=== PATIENT | male | born 1980 | race African-American/Black ===

== ENCOUNTER 2020-02-22 17:28 | Inpatient (IN) ==
[2020-02-22 19:33] LABS: Basophils % 0.5 % (0.0-0.8); Eosinophils # 0.1 10*3/uL (0.0-0.87); Eosinophils % 1.1 % (0.00-10.9); Hematocrit 44.5 VOL% (42.0-52.0); Hemoglobin 16.1 GM/DL (14.0-18.0); Immature Granulocytes % 0.3 %; Immature Granulocytes Absolute 0.02 #; Lymphocytes # 2.1 10*3/uL (1.4-4.0); Lymphocytes % 31.7 % (21.2-54.2); Mean Corpuscular HGB Conc 36.2 GM/DL (32-36); Mean Platelet Volume 11.2 FL (9.6-12.0); Monocytes % 7.5 % (1.7-12.7); Neutrophils % 58.9 % (38.7-73.9); Platelet Count 146 T/CUMM (130-400); Red Cell Distribution Width 13.2 % (9.3-17.3); White Blood Count 6.5 T/CUMM (4-12)
[2020-02-22 19:42] LABS: Apearance,Urine CLEAR (Clear); Bilirubin,Urine Negative (Negative); Blood, Urine Negative (Negative); Glucose,Urine (UA) Negative (Negative); Hyaline Casts,Urine 14 /LPF (0-3); Ketones,Urine Negative (Negative); Mucus,Urine Occasional /LPF (Occasional); Nitrite,Urine Negative (Negative); Protein,Urine Negative; Squamous Epithelial Cell,Urine Occasional /HPF (0-10); Urine Color Yellow (Yellow); Urine Specific Gravity 1.019 (1.001-1.035); Urine Urobilinogen < 2.0 EU/DL (0.2-1.0)
[2020-02-22 19:42] LABS: PT Patient Result 11.1 SECS (9.8-11.9)
[2020-02-22 19:50] LABS: Alanine Aminotransferase 33 U/L (16-61); Albumin 3.9 G/DL (3.4-5.0); Alkaline Phosphatase 103 U/L (45-117); Aspartate Amino Transferase 28 U/L (0-37); Blood Urea Nitrogen 10 MG/DL (7-18); CKMB % 0.8 %; Calcium 8.3 MG/DL (8.5-10.1); Estimated Glom Filtration Rate 115 ML/MIN; Glucose 73 MG/DL (74-106); Osmolality,Calculated 278.3 MOS/KG (273-304); Total Protein 6.9 G/DL (6.4-8.3); Troponin I < 0.015 NG/ML (0.00-0.045)
[2020-02-22 19:51] LABS: Acetaminophen < 2.0 UG/ML (10-30); Salicylate < 2.8 MG/DL (2.8-20)
[2020-02-22 20:00] LABS: Barbiturates Screen,Urine Negative (Negative); Benzodiazepines Screen,Urine Negative (Negative); Cannabinoid Screen,Urine Negative (Negative); Opiate Screen,Urine Negative (Negative); Phencyclidine Screen,Urine Negative (Negative)
[2020-02-22] MEDS ORDERED: ALBUTEROL 2.5 MG/3 ML NEB RESP TX PRN (23:51)
[2020-02-22] MEDS ORDERED: ONDANSETRON 4 MG/2 ML VIAL IV PRN (23:51)
[2020-02-23] MEDS: LACTATED RINGERS 1,000 ML IV SCH ×3 (01:55→15:45)
[2020-02-23 05:10] LABS: Basophils % 0.3 % (0.0-0.8); Eosinophils # 0.1 10*3/uL (0.0-0.87); Eosinophils % 1.8 % (0.00-10.9); Hematocrit 42.5 VOL% (42.0-52.0); Immature Granulocytes % 0.3 %; Immature Granulocytes Absolute 0.02 #; Lymphocytes # 2.3 10*3/uL (1.4-4.0); Lymphocytes % 35.3 % (21.2-54.2); Mean Corpuscular HGB Conc 37.2 GM/DL (32-36); Mean Corpuscular Volume 84.5 FL (87-102); Mean Platelet Volume 12.1 FL (9.6-12.0); Monocytes % 7.6 % (1.7-12.7); Neutrophils % 54.7 % (38.7-73.9); Platelet Count 119 T/CUMM (130-400); Red Blood Count 5.03 MC/CUMM (3.8-5.5); Red Cell Distribution Width 13.2 % (9.3-17.3); White Blood Count 6.6 T/CUMM (4-12)
[2020-02-23 05:14] LABS: Hemoglobin 15.8 GM/DL (14.0-18.0)
[2020-02-23 05:17] LABS: Albumin 3.5 G/DL (3.4-5.0); Bilirubin,Total 1.3 MG/DL (0.2-1.0); Calcium 8.5 MG/DL (8.5-10.1); Osmolality,Calculated 273.8 MOS/KG (273-304); Total Protein 6.3 G/DL (6.4-8.3)
[2020-02-23] MEDS: clonazePAM 0.5 MG TABLET PO SCH ×2 (12:26→21:18)
[2020-02-23] MEDS: GABAPENTIN 400 MG CAPSULE PO SCH ×2 (12:26→21:18)
[2020-02-23] MEDS: MIRTAZAPINE 30 MG TABLET PO SCH (21:18)
[2020-02-23] MEDS: MIRTAZAPINE 15 MG TABLET PO SCH (21:18)
[2020-02-24 01:25] VITALS: BP 119/79
[2020-02-24] MEDS: LACTATED RINGERS 1,000 ML IV SCH ×4 (02:29→20:56)
[2020-02-24] MEDS: GABAPENTIN 400 MG CAPSULE PO SCH ×2 (08:08→20:51)
[2020-02-24] MEDS: clonazePAM 0.5 MG TABLET PO SCH ×2 (08:08→20:51)
[2020-02-24] MEDS: MIRTAZAPINE 30 MG TABLET PO SCH (20:52)
[2020-02-24] MEDS: MIRTAZAPINE 15 MG TABLET PO SCH (20:52)
[2020-02-25] MEDS: LACTATED RINGERS 1,000 ML IV SCH ×2 (04:23→11:05)
[2020-02-25] MEDS: GABAPENTIN 400 MG CAPSULE PO SCH (09:09)
[2020-02-25] MEDS: clonazePAM 0.5 MG TABLET PO SCH (09:09)
== END 2020-02-25 18:33 | DRG 817 ==
LOC: EDBD → EDUNIT# → N.ED 17:28 → N.EDINP 23:51 → SUATTDRO 23:51 → N.ICU 02-23 00:29
PROVIDERS: ADMIT Student in an Organized Health Care Education/Training Program; ATTEND Internal Medicine

== ENCOUNTER 2020-06-12 23:29 | Observation (INO) ==
[2020-06-12] MEDS ORDERED: SODIUM CHLORIDE 0.9% 1,000 ML IV STA (23:42)
[2020-06-13 00:11] LABS: Bilirubin,Total 0.6 MG/DL (0.2-1.0); Calcium 8.9 MG/DL (8.5-10.1); Osmolality,Calculated 276.7 MOS/KG (273-304); Total Protein 7.7 G/DL (6.4-8.3)
[2020-06-13] MEDS ORDERED: ASPIRIN CHEW 81 MG TABLET PO STA (00:21)
[2020-06-13 00:27] LABS: Basophils % 0.4 % (0.0-0.8); Eosinophils % 0.1 % (0.00-10.9); Hematocrit 49.6 VOL% (42.0-52.0); Hemoglobin 18.5 GM/DL (14.0-18.0); Immature Granulocytes % 0.7 %; Immature Granulocytes Absolute 0.06 #; Lymphocytes # 1.7 10*3/uL (1.4-4.0); Lymphocytes % 20.4 % (21.2-54.2); Mean Corpuscular HGB Conc 37.3 GM/DL (32-36); Mean Corpuscular Volume 84.4 FL (87-102); Mean Platelet Volume 11.9 FL (9.6-12.0); Neutrophils % 71.4 % (38.7-73.9); Platelet Count 217 T/CUMM (130-400); Red Blood Count 5.88 MC/CUMM (3.8-5.5); Red Cell Distribution Width 13.2 % (9.3-17.3); White Blood Count 8.1 T/CUMM (4-12)
[2020-06-13 00:43] LABS: PT Patient Result 10.5 SECS (9.8-11.9)
[2020-06-13 01:27] LABS: Bilirubin,Urine Negative (Negative); Blood, Urine Negative (Negative); Glucose,Urine (UA) Negative (Negative); Hyaline Casts,Urine 61 /LPF (0-3); Ketones,Urine Negative (Negative); Mucus,Urine Few /LPF (Occasional); Nitrite,Urine Negative (Negative); Protein,Urine 100 MG/DL; Squamous Epithelial Cell,Urine Occasional /HPF (0-10); Urine Appearance CLOUDY (Clear); Urine Color Yellow (Yellow); Urine Specific Gravity 1.012 (1.001-1.035); WBC,Urine 3 /HPF (0-6)
[2020-06-13 01:29] LABS: Barbiturates Screen,Urine Negative (Negative); Benzodiazepines Screen,Urine Negative (Negative); Cannabinoid Screen,Urine Negative (Negative); Opiate Screen,Urine Negative (Negative); Phencyclidine Screen,Urine Negative (Negative)
[2020-06-13] MEDS ORDERED: THIAMINE INJ 100 MG, FOLIC ACID INJ 1 MG, MULTIVITAMIN INJ 10 ML in SODIUM CHLORIDE 0.9... IV ONE (01:30)
[2020-06-13] MEDS ORDERED: DEXTROSE 50% 25 GM/50 ML VIAL IV PRN (01:41)
[2020-06-13] MEDS ORDERED: GLUCAGON 1 MG VIAL IM PRN (01:41)
[2020-06-13] MEDS ORDERED: ONDANSETRON 4 MG/2 ML VIAL IV PRN (01:41)
[2020-06-13] MEDS ORDERED: NICOTINE 21 MG/24 HR PATCH TRANSDERM PRN (01:41)
[2020-06-13] MEDS ORDERED: INFLUENZA VIRUS VACCINE 0.5 ML SYRINGE IM ONE (03:50)
[2020-06-13 04:28] LABS: Albumin 3.3 G/DL (3.4-5.0); Bilirubin,Total 0.9 MG/DL (0.2-1.0); Calcium 8.3 MG/DL (8.5-10.1); Osmolality,Calculated 281.3 MOS/KG (273-304); Total Protein 6.5 G/DL (6.4-8.3)
[2020-06-13] MEDS ORDERED: ENOXAPARIN 80 MG/0.8 ML SYRINGE SUBCUT SCH (06:30)
[2020-06-13] MEDS: LACTATED RINGERS 1,000 ML IV SCH ×3 (13:10→17:45)
[2020-06-13] MEDS: GABAPENTIN 100 MG CAPSULE PO SCH (21:19)
[2020-06-14 03:18] LABS: Calcium 8.3 MG/DL (8.5-10.1); Osmolality,Calculated 278.4 MOS/KG (273-304)
[2020-06-14 03:23] LABS: Risk Ratio 2.05; VLDL CHOLESTEROL 16.2 MG/DL
[2020-06-14 03:25] LABS: Basophils % 0.2 % (0.0-0.8); Eosinophils # 0.1 10*3/uL (0.0-0.87); Eosinophils % 1.8 % (0.00-10.9); Hematocrit 43.2 VOL% (42.0-52.0); Immature Granulocytes % 0.5 %; Immature Granulocytes Absolute 0.03 #; Lymphocytes # 1.8 10*3/uL (1.4-4.0); Lymphocytes % 29.3 % (21.2-54.2); Mean Corpuscular HGB Conc 37.3 GM/DL (32-36); Mean Corpuscular Volume 84.4 FL (87-102); Mean Platelet Volume 11.4 FL (9.6-12.0); Monocytes % 8.4 % (1.7-12.7); Neutrophils % 59.8 % (38.7-73.9); Red Blood Count 5.12 MC/CUMM (3.8-5.5); Red Cell Distribution Width 13.1 % (9.3-17.3); White Blood Count 6.2 T/CUMM (4-12)
[2020-06-14 03:28] LABS: Hemoglobin 16.1 GM/DL (14.0-18.0); Platelet Count 147 T/CUMM (130-400)
[2020-06-14 08:58] VITALS: BP 156/93
[2020-06-14] MEDS ORDERED: ASPIRIN CHEW 81 MG TABLET PO SCH (09:00)
[2020-06-14] MEDS ORDERED: ENOXAPARIN 40 MG/0.4 ML SYRINGE SUBCUT SCH (09:00)
[2020-06-14] MEDS: GABAPENTIN 100 MG CAPSULE PO SCH (09:21)
== END 2020-06-14 13:30 | disposition home or self-care (01) ==
LOC: N.EDINP 23:29 → N.ED 23:29 → N.TELES 06-13 02:43
PROVIDERS: ADMIT Internal Medicine; ATTEND Internal Medicine

== ENCOUNTER 2020-10-12 02:05 | Observation (INO) ==
[2020-10-12 03:13] LABS: Acetaminophen < 2.0 UG/ML (10-30); Salicylate < 2.8 MG/DL (2.8-20)
[2020-10-12 03:23] LABS: Barbiturates Screen,Urine Negative (Negative); Benzodiazepines Screen,Urine Negative (Negative); Cannabinoid Screen,Urine Negative (Negative); Opiate Screen,Urine Negative (Negative); Phencyclidine Screen,Urine Negative (Negative)
[2020-10-12 03:32] LABS: Bilirubin,Urine Negative (Negative); Blood, Urine Negative (Negative); Glucose,Urine (UA) Negative (Negative); Hyaline Casts,Urine 37 /LPF (0-3); Ketones,Urine Negative (Negative); Mucus,Urine Moderate /LPF (Occasional); Nitrite,Urine Negative (Negative); Protein,Urine 30 MG/DL; RBC,Urine 14 /HPF (0-4); Squamous Epithelial Cell,Urine Occasional /HPF (0-10); Urine Appearance Slightly Hazy (Clear); Urine Color Amber (Yellow); Urine Specific Gravity 1.041 (1.001-1.035); WBC,Urine 1 /HPF (0-6)
[2020-10-12] MEDS ORDERED: ONDANSETRON 4 MG/2 ML VIAL IV PRN (06:07)
[2020-10-12] MEDS ORDERED: ACETAMINOPHEN 325 MG TABLET PO PRN (06:07)
[2020-10-12] MEDS ORDERED: DEXTROSE 50% 25 GM/50 ML VIAL IV PRN (06:07)
[2020-10-12] MEDS ORDERED: PROMETHAZINE 25 MG/1 ML VIAL IM PRN (06:07)
[2020-10-12] MEDS ORDERED: hydrALAZINE 20 MG/1 ML VIAL IV PRN (06:07)
[2020-10-12] MEDS ORDERED: GLUCAGON 1 MG VIAL IM PRN (06:07)
[2020-10-12] MEDS ORDERED: DOCUSATE SODIUM 100 MG CAPSULE PO PRN (06:07)
[2020-10-12] MEDS ORDERED: LORazepam 2 MG/1 ML VIAL IV PRN (06:11)
[2020-10-12] MEDS ORDERED: HALOPERIDOL 5 MG/ML AMP IM PRN (06:11)
[2020-10-12] MEDS: ENOXAPARIN 40 MG/0.4 ML SYRINGE SUBCUT SCH (06:58)
[2020-10-12] MEDS: SODIUM CHLORIDE 0.9% 1,000 ML IV SCH ×3 (07:00→23:00)
[2020-10-12] MEDS ORDERED: IBUPROFEN 800 MG TABLET PO PRN (14:35)
[2020-10-12] MEDS: GABAPENTIN 600 MG TABLET PO PRN (14:58)
[2020-10-12] MEDS: DULoxetine 30 MG CAPSULE PO SCH (20:34)
[2020-10-12] MEDS: SODIUM CHLORIDE 0.65% NASAL SPRAY 45 ML BOTTLE BOTH NARES PRN (22:20)
[2020-10-13 06:03] LABS: Basophils % 0.2 % (0.0-0.8); Eosinophils # 0.4 10*3/uL (0.0-0.87); Eosinophils % 4.4 % (0.00-10.9); Hematocrit 41.8 VOL% (42.0-52.0); Hemoglobin 15.6 GM/DL (14.0-18.0); Immature Granulocytes % 0.5 %; Immature Granulocytes Absolute 0.04 #; Lymphocytes # 1.6 10*3/uL (1.4-4.0); Lymphocytes % 17.6 % (21.2-54.2); Mean Corpuscular HGB Conc 37.3 GM/DL (32-36); Mean Corpuscular Volume 84.3 FL (87-102); Mean Platelet Volume 12.2 FL (9.6-12.0); Neutrophils % 69.3 % (38.7-73.9); Platelet Count 152 T/CUMM (130-400); Red Blood Count 4.96 MC/CUMM (3.8-5.5); Red Cell Distribution Width 13.2 % (9.3-17.3); White Blood Count 8.9 T/CUMM (4-12)
[2020-10-13 06:10] LABS: Calcium 8.7 MG/DL (8.5-10.1); Potassium 4.7 MMOL/L (3.5-5.1)
[2020-10-13] MEDS: ENOXAPARIN 40 MG/0.4 ML SYRINGE SUBCUT SCH (06:33)
[2020-10-13] MEDS: SODIUM CHLORIDE 0.9% 1,000 ML IV SCH ×4 (08:24→22:30)
[2020-10-13] MEDS: GABAPENTIN 600 MG TABLET PO PRN (11:24)
[2020-10-13] MEDS: DULoxetine 30 MG CAPSULE PO SCH (20:19)
[2020-10-13] MEDS: SODIUM CHLORIDE 0.65% NASAL SPRAY 45 ML BOTTLE BOTH NARES PRN (20:22)
[2020-10-14] MEDS: SODIUM CHLORIDE 0.9% 1,000 ML IV SCH ×2 (04:00→12:00)
[2020-10-14] MEDS: ENOXAPARIN 40 MG/0.4 ML SYRINGE SUBCUT SCH (08:23)
[2020-10-14 15:05] VITALS: BP 134/77
== END 2020-10-14 20:19 ==
LOC: SUATTDRO → N.EDINP 02:05 → N.ED 02:05 → N.5E 08:15
PROVIDERS: ADMIT Internal Medicine Geriatric Medicine; ATTEND Internal Medicine Geriatric Medicine

== ENCOUNTER 2021-01-06 00:09 | Observation (INO) ==
[2021-01-06] MEDS ORDERED: SODIUM CHLORIDE 0.9% 1,000 ML IV STA ×3 (00:26→02:46)
[2021-01-06 01:12] LABS: Basophils % 0.3 % (0.0-0.8); Eosinophils % 0.3 % (0.00-10.9); Hematocrit 46.7 VOL% (42.0-52.0); Hemoglobin 16.8 GM/DL (14.0-18.0); Immature Granulocytes % 0.3 %; Immature Granulocytes Absolute 0.02 #; Lymphocytes # 1.5 10*3/uL (1.4-4.0); Mean Corpuscular Volume 85.2 FL (87-102); Mean Platelet Volume 12.3 FL (9.6-12.0); Neutrophils % 70.1 % (38.7-73.9); Platelet Count 141 T/CUMM (130-400); Red Blood Count 5.48 MC/CUMM (3.8-5.5); Red Cell Distribution Width 13.6 % (9.3-17.3); White Blood Count 7.8 T/CUMM (4-12)
[2021-01-06 01:39] LABS: Alanine Aminotransferase 49 U/L (16-61); Albumin 4.1 G/DL (3.4-5.0); Alkaline Phosphatase 101 U/L (45-117); Aspartate Amino Transferase 56 U/L (0-37); Blood Urea Nitrogen 17 MG/DL (7-18); CKMB % 0.3 %; Calcium 8.7 MG/DL (8.5-10.1); Carbon Dioxide 25 MMOL/L (21-32); Estimated Glom Filtration Rate 106 ML/MIN; Glucose 112 MG/DL (74-106); Osmolality,Calculated 277.7 MOS/KG (273-304); Potassium 3.9 MMOL/L (3.5-5.1); Sodium 138 MMOL/L (136-145); Total Protein 7.1 G/DL (6.4-8.2)
[2021-01-06] MEDS ORDERED: ONDANSETRON 4 MG/2 ML VIAL IV PRN (02:28)
[2021-01-06] MEDS ORDERED: DEXTROSE 50% 25 GM/50 ML VIAL IV PRN (02:28)
[2021-01-06] MEDS ORDERED: GLUCAGON 1 MG VIAL IM PRN (02:28)
[2021-01-06] MEDS ORDERED: SODIUM CHLORIDE 0.9% 1,000 ML IV SCH (02:30)
[2021-01-06 03:00] LABS: Bilirubin,Urine Negative (Negative); Blood, Urine Negative (Negative); Glucose,Urine (UA) Negative (Negative); Ketones,Urine Negative (Negative); Mucus,Urine Occasional /LPF (Occasional); Nitrite,Urine Negative (Negative); Protein,Urine Negative; RBC,Urine 2 /HPF (0-4); Squamous Epithelial Cell,Urine Occasional /HPF (0-10); Urine Appearance CLEAR (Clear); Urine Color Yellow (Yellow); Urine Specific Gravity 1.025 (1.001-1.035)
[2021-01-06 03:13] LABS: Barbiturates Screen,Urine Negative (Negative); Benzodiazepines Screen,Urine Negative (Negative); Cannabinoid Screen,Urine Negative (Negative); Opiate Screen,Urine Negative (Negative); Phencyclidine Screen,Urine Negative (Negative)
[2021-01-06 05:42] LABS: CKMB % 0.3 %; High Sensitive Troponin I* 51.6 ng/L (0-78)
[2021-01-06] MEDS: SODIUM CHLORIDE 0.9% 1,000 ML IV SCH ×3 (12:24→20:27)
[2021-01-07] MEDS: SODIUM CHLORIDE 0.9% 1,000 ML IV SCH ×2 (01:10→09:00)
[2021-01-07 05:50] LABS: Basophils % 0.3 % (0.0-0.8); Eosinophils # 0.2 10*3/uL (0.0-0.87); Eosinophils % 2.7 % (0.00-10.9); Hematocrit 46.3 VOL% (42.0-52.0); Hemoglobin 16.5 GM/DL (14.0-18.0); Immature Granulocytes % 0.3 %; Immature Granulocytes Absolute 0.02 #; Lymphocytes # 1.8 10*3/uL (1.4-4.0); Lymphocytes % 29.5 % (21.2-54.2); Mean Corpuscular HGB Conc 35.6 GM/DL (32-36); Mean Platelet Volume 12.1 FL (9.6-12.0); Monocytes % 8.1 % (1.7-12.7); Neutrophils % 59.1 % (38.7-73.9); Platelet Count 129 T/CUMM (130-400); Red Blood Count 5.45 MC/CUMM (3.8-5.5); Red Cell Distribution Width 13.3 % (9.3-17.3); White Blood Count 5.9 T/CUMM (4-12)
[2021-01-07 06:22] LABS: Albumin 3.6 G/DL (3.4-5.0); Bilirubin,Total 1.8 MG/DL (0.20-1.00); Calcium 8.6 MG/DL (8.5-10.1); Osmolality,Calculated 273.7 MOS/KG (273-304); Potassium 4.2 MMOL/L (3.5-5.1); Total Protein 6.1 G/DL (6.4-8.2)
[2021-01-07 07:28] VITALS: BP 133/90
== END 2021-01-07 11:26 | disposition home or self-care (01) ==
LOC: EDUNIT# → EDBD → N.EDINP 00:09 → N.ED 00:09 → N.EDINP 11:10 → N.5E 12:01
PROVIDERS: ADMIT Internal Medicine; ATTEND Internal Medicine

== ENCOUNTER 2021-01-25 06:28 | Inpatient (IN) ==
[2021-01-25 08:16] LABS: Acetaminophen < 2.0 UG/ML (10-30); Salicylate < 2.8 MG/DL (2.8-20)
[2021-01-25 08:19] LABS: Basophils % 0.3 % (0.0-0.8); Eosinophils % 0.4 % (0.00-10.9); Hematocrit 41.3 VOL% (42.0-52.0); Immature Granulocytes % 0.5 %; Immature Granulocytes Absolute 0.04 #; Lymphocytes # 0.4 10*3/uL (1.4-4.0); Lymphocytes % 4.6 % (21.2-54.2); Mean Corpuscular HGB Conc 37.8 GM/DL (32-36); Mean Corpuscular Volume 82.9 FL (87-102); Mean Platelet Volume 11.5 FL (9.6-12.0); Monocytes % 2.9 % (1.7-12.7); Neutrophils % 91.3 % (38.7-73.9); Platelet Count 169 T/CUMM (130-400); Red Blood Count 4.98 MC/CUMM (3.8-5.5); Red Cell Distribution Width 13.3 % (9.3-17.3); White Blood Count 7.7 T/CUMM (4-12)
[2021-01-25 08:21] LABS: Hemoglobin 15.6 GM/DL (14.0-18.0)
[2021-01-25 08:29] LABS: Band Neutrophils 1 % (0-10); Eosinophils 2 % (0-10); Lymphocytes 6 % (20-55); Platelet Estimate Adequate; Segmented Neutrophils 89 % (50-85); Total Cells Counted 100
[2021-01-25 10:32] LABS: Barbiturates Screen,Urine Negative (Negative); Benzodiazepines Screen,Urine Negative (Negative); Cannabinoid Screen,Urine Negative (Negative); Opiate Screen,Urine Negative (Negative); Phencyclidine Screen,Urine Negative (Negative)
[2021-01-25] MEDS ORDERED: DOCUSATE SODIUM 100 MG CAPSULE PO PRN (12:16)
[2021-01-25] MEDS ORDERED: LORazepam 2 MG/1 ML VIAL IV PRN (12:16)
[2021-01-25] MEDS ORDERED: DEXTROSE 50% 25 GM/50 ML VIAL IV PRN (12:16)
[2021-01-25] MEDS ORDERED: GLUCAGON 1 MG VIAL IM PRN (12:16)
[2021-01-25] MEDS ORDERED: SIMETHICONE CHEW 125 MG TABLET PO PRN (12:16)
[2021-01-25 12:49] LABS: Albumin 3.9 G/DL (3.4-5.0); Bilirubin,Total 1.2 MG/DL (0.20-1.00); Calcium 8.7 MG/DL (8.5-10.1); Osmolality,Calculated 260.8 MOS/KG (273-304); Potassium 3.9 MMOL/L (3.5-5.1); Thyroid Stimulating Hormone 0.149 uIU/ml (0.358-3.74); Total Protein 6.9 G/DL (6.4-8.2)
[2021-01-25] MEDS: ENOXAPARIN 40 MG/0.4 ML SYRINGE SUBCUT SCH (14:26)
[2021-01-25 19:52] LABS: Bilirubin,Urine Negative (Negative); Blood, Urine Negative (Negative); Glucose,Urine (UA) Negative (Negative); Ketones,Urine 20 mg/dL (Negative); Mucus,Urine Occasional /LPF (Occasional); Nitrite,Urine Negative (Negative); Protein,Urine Negative; RBC,Urine 3 /HPF (0-4); Squamous Epithelial Cell,Urine Occasional /HPF (0-10); Urine Appearance CLEAR (Clear); Urine Color Yellow (Yellow); Urine Specific Gravity 1.019 (1.001-1.035)
[2021-01-25] MEDS: ASCORBIC ACID 500 MG TABLET PO SCH (23:15)
[2021-01-26 04:39] LABS: Albumin 3.4 G/DL (3.4-5.0); Bilirubin,Total 0.9 MG/DL (0.20-1.00); Calcium 9.1 MG/DL (8.5-10.1); Osmolality,Calculated 270.1 MOS/KG (273-304); Potassium 4.1 MMOL/L (3.5-5.1); Total Protein 6.8 G/DL (6.4-8.2)
[2021-01-26 04:41] LABS: Ferritin 764.1 ng/ml (26-388)
[2021-01-26 04:43] LABS: Basophils % 0.2 % (0.0-0.8); Eosinophils % 0.4 % (0.00-10.9); Hematocrit 44.5 VOL% (42.0-52.0); Immature Granulocytes % 0.4 %; Immature Granulocytes Absolute 0.02 #; Lymphocytes # 1.3 10*3/uL (1.4-4.0); Lymphocytes % 26.2 % (21.2-54.2); Mean Corpuscular HGB Conc 36.4 GM/DL (32-36); Mean Corpuscular Volume 83.3 FL (87-102); Mean Platelet Volume 11.7 FL (9.6-12.0); Monocytes % 9.9 % (1.7-12.7); Neutrophils % 62.9 % (38.7-73.9); Platelet Count 202 T/CUMM (130-400); Red Blood Count 5.34 MC/CUMM (3.8-5.5); Red Cell Distribution Width 13.2 % (9.3-17.3)
[2021-01-26 04:48] LABS: Hemoglobin 16.2 GM/DL (14.0-18.0)
[2021-01-26] MEDS: ASCORBIC ACID 500 MG TABLET PO SCH ×2 (08:32→21:13)
[2021-01-26] MEDS: ZINC GLUCONATE 50 MG TABLET PO SCH (08:32)
[2021-01-26] MEDS: PANTOPRAZOLE 40 MG TABLET PO SCH (08:32)
[2021-01-26] MEDS: CHOLECALCIFEROL 1,000 UNIT TABLET PO SCH (08:33)
[2021-01-26] MEDS ORDERED: MECLIZINE 25 MG TABLET PO PRN (11:00)
[2021-01-26] MEDS ORDERED: ONDANSETRON 4 MG/2 ML VIAL IV PRN (11:00)
[2021-01-26] MEDS ORDERED: SODIUM CHLORIDE 0.9% 200 ML IV SCH (11:00)
[2021-01-26] MEDS ORDERED: methylPREDNISolone SOD SUC 125 MG/2 ML VIAL IV PRN (11:00)
[2021-01-26] MEDS ORDERED: ACETAMINOPHEN 325 MG TABLET PO PRN (11:00)
[2021-01-26] MEDS ORDERED: DEXAMETHASONE 4 MG TABLET PO ONE (11:00)
[2021-01-26] MEDS ORDERED: diphenhydrAMINE 50 MG/1 ML VIAL IV PRN ×2 (11:00)
[2021-01-26] MEDS: SODIUM CHLORIDE 0.9% 1,000 ML IV SCH (11:11)
[2021-01-26] MEDS ORDERED: CASIRIVIMAB/IMDEVIMAB 1,200 MG in SODIUM CHLORIDE 0.9% 100 ML IV ONE (12:00)
[2021-01-26] MEDS: ENOXAPARIN 40 MG/0.4 ML SYRINGE SUBCUT SCH (13:16)
[2021-01-26 17:00] LABS: Free T4 (Free Thyroxine) 0.9 NG/DL (0.76-1.46)
[2021-01-27 08:50] LABS: Calcium 8.6 MG/DL (8.5-10.1); Ferritin 623.8 ng/ml (26-388); Potassium 3.7 MMOL/L (3.5-5.1)
[2021-01-27] MEDS: ASCORBIC ACID 500 MG TABLET PO SCH ×2 (09:37→20:15)
[2021-01-27] MEDS: CHOLECALCIFEROL 1,000 UNIT TABLET PO SCH (09:37)
[2021-01-27] MEDS: ZINC GLUCONATE 50 MG TABLET PO SCH (09:37)
[2021-01-27] MEDS: PANTOPRAZOLE 40 MG TABLET PO SCH (09:37)
[2021-01-27] MEDS: ENOXAPARIN 40 MG/0.4 ML SYRINGE SUBCUT SCH (15:53)
[2021-01-27] MEDS: SODIUM CHLORIDE 0.9% 1,000 ML IV SCH (16:45)
[2021-01-28 07:07] LABS: Calcium 8.4 MG/DL (8.5-10.1); Ferritin 512.2 ng/ml (26-388); Osmolality,Calculated 274.7 MOS/KG (273-304); Potassium 4.4 MMOL/L (3.5-5.1)
[2021-01-28] MEDS: ASCORBIC ACID 500 MG TABLET PO SCH ×2 (08:47→19:40)
[2021-01-28] MEDS: CHOLECALCIFEROL 1,000 UNIT TABLET PO SCH (08:50)
[2021-01-28] MEDS: PANTOPRAZOLE 40 MG TABLET PO SCH (08:50)
[2021-01-28] MEDS: ZINC GLUCONATE 50 MG TABLET PO SCH (09:23)
[2021-01-28] MEDS: ENOXAPARIN 40 MG/0.4 ML SYRINGE SUBCUT SCH (19:40)
[2021-01-28] MEDS: MELATONIN 3 MG TABLET PO PRN (19:40)
[2021-01-29] MEDS: ASCORBIC ACID 500 MG TABLET PO SCH ×2 (08:06→20:30)
[2021-01-29] MEDS: CHOLECALCIFEROL 1,000 UNIT TABLET PO SCH (08:06)
[2021-01-29] MEDS: ZINC GLUCONATE 50 MG TABLET PO SCH (08:06)
[2021-01-29] MEDS: PANTOPRAZOLE 40 MG TABLET PO SCH (08:06)
[2021-01-29 08:17] LABS: Calcium 8.7 MG/DL (8.5-10.1); Ferritin 629.9 ng/ml (26-388); Osmolality,Calculated 269.1 MOS/KG (273-304); Potassium 4.3 MMOL/L (3.5-5.1)
[2021-01-29] MEDS: ENOXAPARIN 40 MG/0.4 ML SYRINGE SUBCUT SCH (20:30)
[2021-01-29] MEDS ORDERED: diphenhydrAMINE CAP 25 MG CAPSULE PO PRN (23:12)
[2021-01-30 05:13] LABS: Basophils % 0.2 % (0.0-0.8); Eosinophils # 0.1 10*3/uL (0.0-0.87); Eosinophils % 1.4 % (0.00-10.9); Hemoglobin 15.4 GM/DL (14.0-18.0); Immature Granulocytes % 0.5 %; Immature Granulocytes Absolute 0.03 #; Lymphocytes # 2.3 10*3/uL (1.4-4.0); Lymphocytes % 41.8 % (21.2-54.2); Mean Corpuscular HGB Conc 35.8 GM/DL (32-36); Mean Corpuscular Volume 84.1 FL (87-102); Mean Platelet Volume 11.8 FL (9.6-12.0); Monocytes % 6.8 % (1.7-12.7); Neutrophils % 49.3 % (38.7-73.9); Platelet Count 205 T/CUMM (130-400); Red Blood Count 5.11 MC/CUMM (3.8-5.5); White Blood Count 5.6 T/CUMM (4-12)
[2021-01-30 05:53] LABS: Calcium 8.8 MG/DL (8.5-10.1); Osmolality,Calculated 272.8 MOS/KG (273-304); Potassium 4.5 MMOL/L (3.5-5.1)
[2021-01-30] MEDS: CHOLECALCIFEROL 1,000 UNIT TABLET PO SCH (09:27)
[2021-01-30] MEDS: ASCORBIC ACID 500 MG TABLET PO SCH ×2 (09:27→20:30)
[2021-01-30] MEDS: PANTOPRAZOLE 40 MG TABLET PO SCH (09:27)
[2021-01-30] MEDS: ZINC GLUCONATE 50 MG TABLET PO SCH (09:27)
[2021-01-30] MEDS: ENOXAPARIN 40 MG/0.4 ML SYRINGE SUBCUT SCH (20:30)
[2021-01-30] MEDS: ACETAMINOPHEN 325 MG TABLET PO PRN (22:45)
[2021-01-30] MEDS: MELATONIN 3 MG TABLET PO PRN (22:45)
[2021-01-31 06:10] LABS: Ferritin 613.3 ng/ml (26-388)
[2021-01-31] MEDS: CHOLECALCIFEROL 1,000 UNIT TABLET PO SCH (08:52)
[2021-01-31] MEDS: ASCORBIC ACID 500 MG TABLET PO SCH ×2 (08:52→20:05)
[2021-01-31] MEDS: ZINC GLUCONATE 50 MG TABLET PO SCH (08:52)
[2021-01-31] MEDS: PANTOPRAZOLE 40 MG TABLET PO SCH (08:52)
[2021-01-31] MEDS: ENOXAPARIN 40 MG/0.4 ML SYRINGE SUBCUT SCH (20:05)
[2021-01-31] MEDS: MELATONIN 3 MG TABLET PO PRN (20:05)
[2021-02-01 06:48] LABS: Ferritin 659.3 ng/ml (26-388)
[2021-02-01 07:02] LABS: Calcium 8.9 MG/DL (8.5-10.1); Osmolality,Calculated 271.8 MOS/KG (273-304); Potassium 4.2 MMOL/L (3.5-5.1)
[2021-02-01 07:06] LABS: Basophils % 0.3 % (0.0-0.8); Eosinophils # 0.1 10*3/uL (0.0-0.87); Eosinophils % 1.5 % (0.00-10.9); Hematocrit 43.7 VOL% (42.0-52.0); Immature Granulocytes Absolute 0.06 #; Lymphocytes # 2.1 10*3/uL (1.4-4.0); Lymphocytes % 34.9 % (21.2-54.2); Mean Corpuscular HGB Conc 37.1 GM/DL (32-36); Mean Corpuscular Volume 83.9 FL (87-102); Mean Platelet Volume 12.2 FL (9.6-12.0); Monocytes % 5.8 % (1.7-12.7); Neutrophils % 56.5 % (38.7-73.9); Platelet Count 199 T/CUMM (130-400); Red Blood Count 5.21 MC/CUMM (3.8-5.5); Red Cell Distribution Width 13.2 % (9.3-17.3); White Blood Count 5.9 T/CUMM (4-12)
[2021-02-01 07:09] LABS: Hemoglobin 16.2 GM/DL (14.0-18.0)
[2021-02-01] MEDS: PANTOPRAZOLE 40 MG TABLET PO SCH (08:03)
[2021-02-01] MEDS: CHOLECALCIFEROL 1,000 UNIT TABLET PO SCH (08:03)
[2021-02-01] MEDS: ZINC GLUCONATE 50 MG TABLET PO SCH (08:03)
[2021-02-01] MEDS: ASCORBIC ACID 500 MG TABLET PO SCH ×2 (08:03→20:29)
[2021-02-01] MEDS ORDERED: hydrOXYzine HCL 25 MG/1 ML VIAL IM PRN (14:18)
[2021-02-01] MEDS: ENOXAPARIN 40 MG/0.4 ML SYRINGE SUBCUT SCH (20:29)
[2021-02-01] MEDS: MELATONIN 3 MG TABLET PO PRN (20:30)
[2021-02-02 05:43] LABS: Basophils % 0.2 % (0.0-0.8); Eosinophils # 0.1 10*3/uL (0.0-0.87); Eosinophils % 1.7 % (0.00-10.9); Hematocrit 45.2 VOL% (42.0-52.0); Hemoglobin 16.2 GM/DL (14.0-18.0); Immature Granulocytes % 0.9 %; Immature Granulocytes Absolute 0.06 #; Lymphocytes # 2.1 10*3/uL (1.4-4.0); Lymphocytes % 31.7 % (21.2-54.2); Mean Corpuscular HGB Conc 35.8 GM/DL (32-36); Mean Corpuscular Volume 84.5 FL (87-102); Monocytes % 6.3 % (1.7-12.7); Neutrophils % 59.2 % (38.7-73.9); Platelet Count 198 T/CUMM (130-400); Red Blood Count 5.35 MC/CUMM (3.8-5.5); Red Cell Distribution Width 13.2 % (9.3-17.3); White Blood Count 6.6 T/CUMM (4-12)
[2021-02-02 06:11] LABS: Calcium 8.9 MG/DL (8.5-10.1); Ferritin 725.1 ng/ml (26-388); Osmolality,Calculated 274.7 MOS/KG (273-304); Potassium 4.4 MMOL/L (3.5-5.1)
[2021-02-02] MEDS: PANTOPRAZOLE 40 MG TABLET PO SCH (08:32)
[2021-02-02] MEDS: ASCORBIC ACID 500 MG TABLET PO SCH ×2 (08:33→19:43)
[2021-02-02] MEDS: CHOLECALCIFEROL 1,000 UNIT TABLET PO SCH (08:33)
[2021-02-02] MEDS: ZINC GLUCONATE 50 MG TABLET PO SCH (08:33)
[2021-02-02] MEDS ORDERED: HALOPERIDOL 5 MG/ML AMP IM ONE (16:30)
[2021-02-02] MEDS: ENOXAPARIN 40 MG/0.4 ML SYRINGE SUBCUT SCH (19:43)
[2021-02-03 06:40] LABS: Calcium 9.3 MG/DL (8.5-10.1); Ferritin 704.4 ng/ml (26-388); Osmolality,Calculated 274.5 MOS/KG (273-304); Potassium 4.5 MMOL/L (3.5-5.1)
[2021-02-03 07:08] LABS: Basophils % 0.3 % (0.0-0.8); Eosinophils # 0.1 10*3/uL (0.0-0.87); Eosinophils % 1.3 % (0.00-10.9); Hematocrit 43.9 VOL% (42.0-52.0); Immature Granulocytes % 1.4 %; Lymphocytes # 2.1 10*3/uL (1.4-4.0); Mean Corpuscular HGB Conc 36.7 GM/DL (32-36); Mean Corpuscular Volume 84.4 FL (87-102); Mean Platelet Volume 12.1 FL (9.6-12.0); Monocytes % 7.4 % (1.7-12.7); Neutrophils % 58.6 % (38.7-73.9); Platelet Count 202 T/CUMM (130-400); Red Cell Distribution Width 13.5 % (9.3-17.3); White Blood Count 6.9 T/CUMM (4-12)
[2021-02-03 07:09] LABS: Hemoglobin 16.1 GM/DL (14.0-18.0)
[2021-02-03] MEDS: CHOLECALCIFEROL 1,000 UNIT TABLET PO SCH (09:27)
[2021-02-03] MEDS: PANTOPRAZOLE 40 MG TABLET PO SCH (09:28)
[2021-02-03] MEDS: ASCORBIC ACID 500 MG TABLET PO SCH ×2 (09:28→21:32)
[2021-02-03] MEDS: ZINC GLUCONATE 50 MG TABLET PO SCH (09:28)
[2021-02-03] MEDS: ENOXAPARIN 40 MG/0.4 ML SYRINGE SUBCUT SCH (21:31)
[2021-02-04 06:28] LABS: Basophils % 0.4 % (0.0-0.8); Eosinophils # 0.1 10*3/uL (0.0-0.87); Eosinophils % 1.6 % (0.00-10.9); Hematocrit 44.6 VOL% (42.0-52.0); Hemoglobin 16.1 GM/DL (14.0-18.0); Immature Granulocytes % 1.8 %; Immature Granulocytes Absolute 0.14 #; Lymphocytes % 25.9 % (21.2-54.2); Mean Corpuscular HGB Conc 36.1 GM/DL (32-36); Mean Corpuscular Volume 84.8 FL (87-102); Mean Platelet Volume 12.3 FL (9.6-12.0); Neutrophils % 64.3 % (38.7-73.9); Platelet Count 204 T/CUMM (130-400); Red Blood Count 5.26 MC/CUMM (3.8-5.5); Red Cell Distribution Width 13.5 % (9.3-17.3); White Blood Count 7.6 T/CUMM (4-12)
[2021-02-04 06:49] LABS: Ferritin 639.6 ng/ml (26-388); Osmolality,Calculated 276.7 MOS/KG (273-304); Potassium 4.3 MMOL/L (3.5-5.1)
[2021-02-04] MEDS: ZINC GLUCONATE 50 MG TABLET PO SCH (08:02)
[2021-02-04] MEDS: ASCORBIC ACID 500 MG TABLET PO SCH ×2 (08:02→21:41)
[2021-02-04] MEDS: PANTOPRAZOLE 40 MG TABLET PO SCH (08:02)
[2021-02-04] MEDS: CHOLECALCIFEROL 1,000 UNIT TABLET PO SCH (08:02)
[2021-02-04] MEDS: ACETAMINOPHEN 325 MG TABLET PO PRN ×2 (12:00→22:29)
[2021-02-04] MEDS: ENOXAPARIN 40 MG/0.4 ML SYRINGE SUBCUT SCH (21:41)
[2021-02-05 04:07] LABS: Basophils % 0.3 % (0.0-0.8); Eosinophils # 0.1 10*3/uL (0.0-0.87); Eosinophils % 1.5 % (0.00-10.9); Hematocrit 45.8 VOL% (42.0-52.0); Hemoglobin 16.2 GM/DL (14.0-18.0); Immature Granulocytes % 1.3 %; Lymphocytes # 2.3 10*3/uL (1.4-4.0); Lymphocytes % 30.3 % (21.2-54.2); Mean Corpuscular HGB Conc 35.4 GM/DL (32-36); Mean Corpuscular Volume 83.9 FL (87-102); Mean Platelet Volume 11.5 FL (9.6-12.0); Neutrophils % 60.6 % (38.7-73.9); Platelet Count 207 T/CUMM (130-400); Red Blood Count 5.46 MC/CUMM (3.8-5.5); Red Cell Distribution Width 13.8 % (9.3-17.3); White Blood Count 7.6 T/CUMM (4-12)
[2021-02-05 04:26] LABS: Hypochromasia Slight
[2021-02-05 04:27] LABS: Microcytosis 1+; Platelet Estimate Normal
[2021-02-05 04:42] LABS: Blood Urea Nitrogen 9 MG/DL (7-18); Calcium 8.1 MG/DL (8.5-10.1); Carbon Dioxide 22 MMOL/L (21-32); Estimated Glom Filtration Rate 148 ML/MIN; Ferritin 594.4 ng/ml (26-388); Glucose 129 MG/DL (74-106); Potassium 3.5 MMOL/L (3.5-5.1); Sodium 143 MMOL/L (136-145)
[2021-02-05] MEDS: ACETAMINOPHEN 325 MG TABLET PO PRN ×2 (10:25→20:28)
[2021-02-05] MEDS: ZINC GLUCONATE 50 MG TABLET PO SCH (10:26)
[2021-02-05] MEDS: CHOLECALCIFEROL 1,000 UNIT TABLET PO SCH (10:26)
[2021-02-05] MEDS: ASCORBIC ACID 500 MG TABLET PO SCH ×2 (10:26→20:28)
[2021-02-05] MEDS: PANTOPRAZOLE 40 MG TABLET PO SCH (10:26)
[2021-02-05] MEDS: ENOXAPARIN 40 MG/0.4 ML SYRINGE SUBCUT SCH (20:28)
[2021-02-05] MEDS: MELATONIN 3 MG TABLET PO PRN (22:07)
[2021-02-06 05:28] LABS: Basophils % 0.5 % (0.0-0.8); Eosinophils # 0.1 10*3/uL (0.0-0.87); Eosinophils % 1.4 % (0.00-10.9); Hematocrit 46.8 VOL% (42.0-52.0); Hemoglobin 17.1 GM/DL (14.0-18.0); Immature Granulocytes % 1.7 %; Immature Granulocytes Absolute 0.14 #; Lymphocytes # 2.4 10*3/uL (1.4-4.0); Lymphocytes % 28.2 % (21.2-54.2); Mean Corpuscular HGB Conc 36.5 GM/DL (32-36); Mean Corpuscular Volume 83.6 FL (87-102); Neutrophils % 61.2 % (38.7-73.9); Platelet Count 169 T/CUMM (130-400); Red Cell Distribution Width 13.9 % (9.3-17.3); White Blood Count 8.5 T/CUMM (4-12)
[2021-02-06 05:49] LABS: Blood Urea Nitrogen 9 MG/DL (7-18); Calcium 8.8 MG/DL (8.5-10.1); Carbon Dioxide 21 MMOL/L (21-32); Estimated Glom Filtration Rate 140 ML/MIN; Ferritin 618.7 ng/ml (26-388); Glucose 106 MG/DL (74-106); Osmolality,Calculated 271.8 MOS/KG (273-304); Potassium 5.3 MMOL/L (3.5-5.1); Sodium 137 MMOL/L (136-145)
[2021-02-06] MEDS: CHOLECALCIFEROL 1,000 UNIT TABLET PO SCH (09:08)
[2021-02-06] MEDS: ASCORBIC ACID 500 MG TABLET PO SCH ×2 (09:08→21:32)
[2021-02-06] MEDS: PANTOPRAZOLE 40 MG TABLET PO SCH (09:08)
[2021-02-06] MEDS: ZINC GLUCONATE 50 MG TABLET PO SCH (09:08)
[2021-02-06] MEDS: MELATONIN 3 MG TABLET PO PRN (21:32)
[2021-02-06] MEDS: ENOXAPARIN 40 MG/0.4 ML SYRINGE SUBCUT SCH (21:32)
[2021-02-07 05:21] LABS: Basophils % 0.3 % (0.0-0.8); Eosinophils # 0.1 10*3/uL (0.0-0.87); Eosinophils % 1.6 % (0.00-10.9); Hematocrit 45.9 VOL% (42.0-52.0); Hemoglobin 16.5 GM/DL (14.0-18.0); Immature Granulocytes % 1.2 %; Immature Granulocytes Absolute 0.09 #; Lymphocytes # 2.1 10*3/uL (1.4-4.0); Lymphocytes % 27.9 % (21.2-54.2); Mean Corpuscular HGB Conc 35.9 GM/DL (32-36); Mean Corpuscular Volume 84.5 FL (87-102); Mean Platelet Volume 12.5 FL (9.6-12.0); Monocytes % 6.1 % (1.7-12.7); NRBC # 0.02 10*3/uL; Neutrophils % 62.9 % (38.7-73.9); Platelet Count 200 T/CUMM (130-400); Red Blood Count 5.43 MC/CUMM (3.8-5.5); White Blood Count 7.4 T/CUMM (4-12)
[2021-02-07 05:40] LABS: Blood Urea Nitrogen 9 MG/DL (7-18); Calcium 8.8 MG/DL (8.5-10.1); Carbon Dioxide 26 MMOL/L (21-32); Estimated Glom Filtration Rate 133 ML/MIN; Ferritin 666.3 ng/ml (26-388); Glucose 107 MG/DL (74-106); Osmolality,Calculated 273.7 MOS/KG (273-304); Potassium 4.5 MMOL/L (3.5-5.1); Sodium 138 MMOL/L (136-145)
[2021-02-07] MEDS: PANTOPRAZOLE 40 MG TABLET PO SCH (08:37)
[2021-02-07] MEDS: CHOLECALCIFEROL 1,000 UNIT TABLET PO SCH (08:37)
[2021-02-07] MEDS: ASCORBIC ACID 500 MG TABLET PO SCH ×2 (08:38→20:53)
[2021-02-07] MEDS: ZINC GLUCONATE 50 MG TABLET PO SCH (08:38)
[2021-02-07] MEDS: ENOXAPARIN 40 MG/0.4 ML SYRINGE SUBCUT SCH (20:53)
[2021-02-07] MEDS: MELATONIN 3 MG TABLET PO PRN (22:33)
[2021-02-08] MEDS: PANTOPRAZOLE 40 MG TABLET PO SCH (08:43)
[2021-02-08] MEDS: ASCORBIC ACID 500 MG TABLET PO SCH ×2 (08:44→20:31)
[2021-02-08] MEDS: CHOLECALCIFEROL 1,000 UNIT TABLET PO SCH (08:44)
[2021-02-08] MEDS: ZINC GLUCONATE 50 MG TABLET PO SCH (08:45)
[2021-02-08] MEDS: ACETAMINOPHEN 325 MG TABLET PO PRN ×2 (09:48→20:31)
[2021-02-08] MEDS: SERTRALINE 25 MG TABLET PO SCH (20:31)
[2021-02-08] MEDS: MELATONIN 3 MG TABLET PO PRN (20:31)
[2021-02-08] MEDS: ENOXAPARIN 40 MG/0.4 ML SYRINGE SUBCUT SCH (20:32)
[2021-02-09] MEDS: CHOLECALCIFEROL 1,000 UNIT TABLET PO SCH (08:24)
[2021-02-09] MEDS: PANTOPRAZOLE 40 MG TABLET PO SCH (08:24)
[2021-02-09] MEDS: ZINC GLUCONATE 50 MG TABLET PO SCH (08:25)
[2021-02-09] MEDS: ASCORBIC ACID 500 MG TABLET PO SCH ×2 (08:25→20:18)
[2021-02-09] MEDS: ENOXAPARIN 40 MG/0.4 ML SYRINGE SUBCUT SCH (20:18)
[2021-02-09] MEDS: SERTRALINE 25 MG TABLET PO SCH (20:18)
[2021-02-09] MEDS: MELATONIN 3 MG TABLET PO PRN (22:19)
[2021-02-10 07:03] LABS: Albumin 3.4 G/DL (3.4-5.0); Bilirubin,Total 0.7 MG/DL (0.20-1.00); Calcium 8.9 MG/DL (8.5-10.1); Ferritin 559.9 ng/mL (26-388); Osmolality,Calculated 278.4 MOS/KG (273-304); Potassium 4.3 MMOL/L (3.5-5.1); Total Protein 6.5 G/DL (6.4-8.2)
[2021-02-10] MEDS: PANTOPRAZOLE 40 MG TABLET PO SCH (08:53)
[2021-02-10] MEDS: ASCORBIC ACID 500 MG TABLET PO SCH ×2 (08:54→21:32)
[2021-02-10] MEDS: ZINC GLUCONATE 50 MG TABLET PO SCH (08:54)
[2021-02-10] MEDS: CHOLECALCIFEROL 1,000 UNIT TABLET PO SCH (08:54)
[2021-02-10] MEDS: MELATONIN 3 MG TABLET PO PRN (21:32)
[2021-02-10] MEDS: SERTRALINE 25 MG TABLET PO SCH (21:32)
[2021-02-10] MEDS: ENOXAPARIN 40 MG/0.4 ML SYRINGE SUBCUT SCH (21:32)
[2021-02-11 06:06] LABS: Albumin 3.3 G/DL (3.4-5.0); Bilirubin,Total 0.6 MG/DL (0.20-1.00); Ferritin 545.6 ng/mL (26-388); Osmolality,Calculated 274.8 MOS/KG (273-304); Potassium 4.9 MMOL/L (3.5-5.1); Total Protein 6.4 G/DL (6.4-8.2)
[2021-02-11] MEDS: ASCORBIC ACID 500 MG TABLET PO SCH (09:19)
[2021-02-11] MEDS: ZINC GLUCONATE 50 MG TABLET PO SCH (09:19)
[2021-02-11] MEDS: PANTOPRAZOLE 40 MG TABLET PO SCH (09:19)
[2021-02-11 10:47] VITALS: BP 115/79
[2021-02-11] MEDS: CHOLECALCIFEROL 1,000 UNIT TABLET PO SCH (10:58)
== END 2021-02-11 09:35 | disposition home or self-care (01) | DRG 756 ==
LOC: N.ED 06:28 → N.EDINP 12:17 → SUATTDRO 12:17 → N.2E 01-27 11:43
PROVIDERS: ADMIT Internal Medicine; ATTEND Internal Medicine

== ENCOUNTER 2021-11-08 16:50 | Observation (INO) ==
[2021-11-08 17:28] LABS: Basophils % 0.3 % (0.0-0.8); Eosinophils # 0.1 10*3/uL (0.0-0.87); Eosinophils % 1.5 % (0.00-10.9); Hematocrit 47.3 VOL% (42.0-52.0); Immature Granulocytes % 0.4 %; Immature Granulocytes Absolute 0.03 #; Lymphocytes # 1.6 10*3/uL (1.4-4.0); Lymphocytes % 23.6 % (21.2-54.2); Mean Corpuscular HGB Conc 35.9 GM/DL (32-36); Mean Platelet Volume 12.5 FL (9.6-12.0); Monocytes # 0.5 10*3/uL (0.11-0.8); Monocytes % 6.9 % (1.7-12.7); Neutrophils % 67.3 % (38.7-73.9); Platelet Count 163 T/CUMM (130-400); Red Cell Distribution Width 13.8 % (9.3-17.3); White Blood Count 6.8 T/CUMM (4-12)
[2021-11-08 17:44] LABS: Acetaminophen < 2.0 UG/ML (10-30); Salicylate < 2.8 MG/DL (2.8-20)
[2021-11-08 17:46] LABS: Albumin 3.7 G/DL (3.4-5.0); Bilirubin,Total 0.6 MG/DL (0.20-1.00); Calcium 9.7 MG/DL (8.5-10.1); Osmolality,Calculated 278.7 MOS/KG (273-304); Potassium 4.3 MMOL/L (3.5-5.1); Total Protein 7.2 G/DL (6.4-8.2)
[2021-11-08 18:04] LABS: Bilirubin,Urine Negative (Negative); Blood, Urine Negative (Negative); Glucose,Urine (UA) Negative (Negative); Ketones,Urine Negative (Negative); Nitrite,Urine Negative (Negative); Protein,Urine Negative (Negative); Squamous Epithelial Cell,Urine Occasional /HPF (0-10); Urine Appearance Clear (Clear); Urine Color Yellow (Yellow); Urine Urobilinogen 0.2 eU/dL (<2.0); Urine pH 6.5 (4.5-8.0)
[2021-11-08 18:16] LABS: Barbiturates Screen,Urine Negative (Negative); Benzodiazepines Screen,Urine Negative (Negative); Cannabinoid Screen,Urine Negative (Negative); Opiate Screen,Urine Negative (Negative); Phencyclidine Screen,Urine Negative (Negative)
[2021-11-08] MEDS ORDERED: DEXTROSE 10% 250 ML BAG IV PRN (22:42)
[2021-11-08] MEDS ORDERED: NICOTINE 21 MG/24 HR PATCH TRANSDERM PRN (22:42)
[2021-11-08] MEDS ORDERED: guaiFENesin/DM ER 600-30 MG TABLET PO PRN (22:42)
[2021-11-08] MEDS ORDERED: GLUCAGON 1 MG VIAL IM PRN (22:42)
[2021-11-08] MEDS ORDERED: diphenhydrAMINE CAP 25 MG CAPSULE PO PRN (22:42)
[2021-11-08] MEDS ORDERED: DOCUSATE SODIUM 100 MG CAPSULE PO PRN (22:42)
[2021-11-08] MEDS ORDERED: ONDANSETRON 4 MG/2 ML VIAL IV PRN (22:42)
[2021-11-08] MEDS ORDERED: ZALEPLON 5 MG CAPSULE PO PRN (22:42)
[2021-11-08] MEDS ORDERED: ACETAMINOPHEN 325 MG TABLET PO PRN (22:42)
[2021-11-08] MEDS ORDERED: hydrALAZINE 20 MG/1 ML VIAL IV PRN (22:42)
[2021-11-09] MEDS ORDERED: DEXTROSE 50% 25 GM/50 ML VIAL IV PRN (00:19)
[2021-11-09] MEDS ORDERED: GLUCAGON 1 MG VIAL IM PRN (00:19)
[2021-11-09] MEDS ORDERED: IBUPROFEN 400 MG TABLET PO PRN (02:41)
[2021-11-09 06:34] LABS: Basophils % 0.6 % (0.0-0.8); Eosinophils # 0.2 10*3/uL (0.0-0.87); Hematocrit 45.1 VOL% (42.0-52.0); Hemoglobin 16.3 GM/DL (14.0-18.0); Immature Granulocytes % 0.8 %; Immature Granulocytes Absolute 0.05 #; Lymphocytes % 30.8 % (21.2-54.2); Mean Corpuscular HGB Conc 36.1 GM/DL (32-36); Mean Corpuscular Volume 83.4 FL (87-102); Mean Platelet Volume 12.2 FL (9.6-12.0); Monocytes # 0.5 10*3/uL (0.11-0.8); Monocytes % 6.9 % (1.7-12.7); Neutrophils % 57.9 % (38.7-73.9); Platelet Count 146 T/CUMM (130-400); Red Blood Count 5.41 MC/CUMM (3.8-5.5); Red Cell Distribution Width 13.8 % (9.3-17.3); White Blood Count 6.6 T/CUMM (4-12)
[2021-11-09 06:56] LABS: Calcium 9.4 MG/DL (8.5-10.1); Osmolality,Calculated 277.8 MOS/KG (273-304); Potassium 4.5 MMOL/L (3.5-5.1)
[2021-11-09] MEDS: ENOXAPARIN 40 MG/0.4 ML SYRINGE SUBCUT SCH (09:36)
[2021-11-09] MEDS: INSULIN LISPRO 100 UNIT/ML SUBCUT SCH ×4 (09:36→21:32)
[2021-11-09] MEDS: PANTOPRAZOLE 40 MG TABLET PO SCH (09:36)
[2021-11-10] MEDS: PANTOPRAZOLE 40 MG TABLET PO SCH (08:43)
[2021-11-10] MEDS: INSULIN LISPRO 100 UNIT/ML SUBCUT SCH ×4 (08:43→21:11)
[2021-11-10] MEDS: ENOXAPARIN 40 MG/0.4 ML SYRINGE SUBCUT SCH (08:44)
[2021-11-11] MEDS: PANTOPRAZOLE 40 MG TABLET PO SCH (09:27)
[2021-11-11] MEDS: INSULIN LISPRO 100 UNIT/ML SUBCUT SCH ×2 (09:28→12:30)
[2021-11-11] MEDS: ENOXAPARIN 40 MG/0.4 ML SYRINGE SUBCUT SCH (09:28)
[2021-11-11 11:16] VITALS: BP 120/79
== END 2021-11-11 13:05 ==
LOC: N.EDINP 16:50 → N.ED 16:50 → SUATTDRO 22:42 → N.5E 23:30
PROVIDERS: ADMIT Internal Medicine; ATTEND Family Medicine

== ENCOUNTER 2021-12-19 19:55 | Inpatient (IN) ==
[2021-12-19 21:07] LABS: Basophils % 0.3 % (0.0-0.8); Hemoglobin 16.9 GM/DL (14.0-18.0); Immature Granulocytes % 0.3 %; Immature Granulocytes Absolute 0.02 #; Mean Corpuscular Volume 81.3 FL (87-102); Mean Platelet Volume 11.3 FL (9.6-12.0)
[2021-12-19 21:21] LABS: Hyaline Casts,Urine 5 /LPF (0-3); Mucus,Urine Occasional /LPF (Occasional); RBC,Urine 1 /HPF (0-4)
[2021-12-19 21:22] LABS: Bilirubin,Urine Negative (Negative); Blood, Urine Negative (Negative); Glucose,Urine (UA) Negative (Negative); Ketones,Urine 15 mg/dL (Negative); Nitrite,Urine Negative (Negative); Protein,Urine Negative (Negative); Urine Appearance Clear (Clear); Urine Color Yellow (Yellow); Urine Specific Gravity >= 1.030 (1.001-1.035)
[2021-12-19 21:25] LABS: Eosinophils # 0.1 10*3/uL (0.0-0.87); Eosinophils % 1.7 % (0.00-10.9); Hematocrit 46.4 VOL% (42.0-52.0); Lymphocytes # 2.8 10*3/uL (1.4-4.0); Lymphocytes % 36.6 % (21.2-54.2); Mean Corpuscular HGB Conc 36.4 GM/DL (32-36); Monocytes # 0.8 10*3/uL (0.11-0.8); Monocytes % 10.1 % (1.7-12.7); Platelet Count 223 T/CUMM (130-400); Red Blood Count 5.71 MC/CUMM (3.8-5.5); White Blood Count 7.7 T/CUMM (4-12)
[2021-12-19 21:37] LABS: Albumin 3.9 G/DL (3.4-5.0); Bilirubin,Total 1.3 MG/DL (0.20-1.00); Calcium 8.5 MG/DL (8.5-10.1); Osmolality,Calculated 284.4 MOS/KG (273-304); Total Protein 7.2 G/DL (6.4-8.2)
[2021-12-19 22:13] LABS: Barbiturates Screen,Urine Negative (Negative); Benzodiazepines Screen,Urine Negative (Negative); Cannabinoid Screen,Urine Negative (Negative); Opiate Screen,Urine Negative (Negative); Phencyclidine Screen,Urine Negative (Negative); Salicylate < 2.8 MG/DL (2.8-20)
[2021-12-19 22:15] LABS: Acetaminophen < 2.0 UG/ML (10-30)
[2021-12-20] MEDS ORDERED: GLUCAGON 1 MG VIAL IM PRN (12:31)
[2021-12-20] MEDS ORDERED: ACETAMINOPHEN 325 MG TABLET PO PRN (12:31)
[2021-12-20] MEDS ORDERED: DEXTROSE 10% 250 ML BAG IV PRN (12:31)
[2021-12-21 16:33] VITALS: BP 98/66
[2021-12-21] MEDS ORDERED: traZODone 50 MG TABLET PO SCH (21:00)
== END 2021-12-21 18:35 | disposition home or self-care (01) | DRG 756 ==
LOC: N.ED 19:55 → N.EDINP 12-20 12:31 → SUATTDRO 12-20 12:31 → N.3E 12-20 14:45
PROVIDERS: ADMIT Internal Medicine; ATTEND Emergency Medicine

== ENCOUNTER 2022-05-15 18:49 | Observation (INO) ==
[2022-05-15] MEDS ORDERED: THIAMINE INJ 100 MG, FOLIC ACID INJ 1 MG, MAGNESIUM SULF INJ 2 GM, MULTIVITAMIN INJ 10 ... IV STA (19:36)
[2022-05-15] MEDS ORDERED: CLINDAMYCIN INJ 600 MG/50 ML PREMIX IV STA (19:36)
[2022-05-15] MEDS ORDERED: KETOROLAC 30 MG/1 ML VIAL IV STA (19:36)
[2022-05-15] MEDS ORDERED: SODIUM CHLORIDE 0.9% 1,000 ML IV STA (19:36)
[2022-05-15 19:50] LABS: Basophils % 0.4 % (0.0-0.8); Eosinophils # 0.1 10*3/uL (0.0-0.87); Hematocrit 41.9 VOL% (42.0-52.0); Hemoglobin 15.2 GM/DL (14.0-18.0); Immature Granulocytes % 0.3 %; Immature Granulocytes Absolute 0.03 #; Lymphocytes # 2.3 10*3/uL (1.4-4.0); Lymphocytes % 24.9 % (21.2-54.2); Mean Corpuscular HGB Conc 36.3 GM/DL (32-36); Mean Corpuscular Volume 82.5 FL (87-102); Mean Platelet Volume 11.4 FL (9.6-12.0); Monocytes # 0.9 10*3/uL (0.11-0.8); Monocytes % 9.9 % (1.7-12.7); Neutrophils % 63.5 % (38.7-73.9); Platelet Count 206 T/CUMM (130-400); Red Blood Count 5.08 MC/CUMM (3.8-5.5); Red Cell Distribution Width 13.4 % (9.3-17.3); White Blood Count 9.1 T/CUMM (4-12)
[2022-05-15 20:09] LABS: Alanine Aminotransferase 30 U/L (16-61); Albumin 3.9 G/DL (3.4-5.0); Alkaline Phosphatase 156 U/L (45-117); Aspartate Amino Transferase 31 U/L (0-37); Blood Urea Nitrogen 20 MG/DL (7-18); Calcium 9.2 MG/DL (8.5-10.1); Carbon Dioxide 25 MMOL/L (21-32); Chloride 107 MMOL/L (98-107); Glucose 159 MG/DL (74-106); Osmolality,Calculated 282.5 MOS/KG (273-304); Sodium 139 MMOL/L (136-145); Total Protein 7.1 G/DL (6.4-8.2)
[2022-05-15 20:19] LABS: Urine Appearance Clear (Clear); Urine Color Yellow (Yellow)
[2022-05-15 20:20] LABS: Urine pH 5.5 (4.5-8.0)
[2022-05-15 20:21] LABS: Bilirubin,Urine Small mg/dL (Negative); Blood, Urine Negative (Negative); Glucose,Urine (UA) Negative (Negative); Ketones,Urine Trace mg/dL (Negative); Nitrite,Urine Negative (Negative); Protein,Urine Trace mg/dL (Negative); Urine Specific Gravity >= 1.030 (1.001-1.035); Urine Urobilinogen 0.2 eU/dL (<2.0)
[2022-05-15 20:22] LABS: Mucus,Urine Occasional /LPF (Occasional); RBC,Urine 1 /HPF (0-4); Squamous Epithelial Cell,Urine Occasional /HPF (0-10)
[2022-05-15 20:36] LABS: Barbiturates Screen,Urine Negative (Negative); Benzodiazepines Screen,Urine Negative (Negative); Cannabinoid Screen,Urine Positive (Negative); Opiate Screen,Urine Negative (Negative); Phencyclidine Screen,Urine Negative (Negative)
[2022-05-15] MEDS ORDERED: ACETAMINOPHEN 325 MG TABLET PO PRN (21:40)
[2022-05-15] MEDS ORDERED: hydrALAZINE 20 MG/1 ML VIAL IV PRN (21:40)
[2022-05-15] MEDS ORDERED: ONDANSETRON 4 MG/2 ML VIAL IV PRN (21:40)
[2022-05-15] MEDS ORDERED: CLINDAMYCIN 300 MG CAPSULE PO SCH (22:00)
[2022-05-15] MEDS: COLCHICINE 0.6 MG CAPSULE PO SCH (23:46)
[2022-05-16] MEDS ORDERED: HALOPERIDOL 5 MG/ML AMP IM ONE (00:16)
[2022-05-16] MEDS ORDERED: INFLUENZA VIRUS VACCINE 0.5 ML SYRINGE IM ONE (00:34)
[2022-05-16 06:43] LABS: Albumin 2.2 G/DL (3.4-5.0); Bilirubin,Total 0.8 MG/DL (0.20-1.00); Calcium 6.8 MG/DL (8.5-10.1); Osmolality,Calculated 287.8 MOS/KG (273-304); Potassium 3.4 MMOL/L (3.5-5.1); Total Protein 4.6 G/DL (6.4-8.2)
[2022-05-16] MEDS ORDERED: POTASSIUM CHLORIDE 20 MEQ TABLET PO ONE (08:45)
[2022-05-16] MEDS: CLINDAMYCIN 300 MG CAPSULE PO SCH ×3 (09:08→17:11)
[2022-05-16] MEDS: COLCHICINE 0.6 MG CAPSULE PO SCH ×2 (09:08→20:11)
[2022-05-16] MEDS: VENLAFAXINE XR 37.5 MG CAPSULE PO SCH (11:30)
[2022-05-16] MEDS: traZODone 50 MG TABLET PO SCH (20:11)
[2022-05-16] MEDS: ENOXAPARIN 40 MG/0.4 ML SYRINGE SUBCUT SCH (20:11)
[2022-05-16] MEDS: OLANZapine 5 MG TABLET PO SCH (20:11)
[2022-05-17] MEDS: COLCHICINE 0.6 MG CAPSULE PO SCH ×2 (08:45→20:37)
[2022-05-17] MEDS: CLINDAMYCIN 300 MG CAPSULE PO SCH ×3 (08:45→17:16)
[2022-05-17] MEDS: VENLAFAXINE XR 37.5 MG CAPSULE PO SCH (08:46)
[2022-05-17 10:51] LABS: Calcium 8.5 MG/DL (8.5-10.1); Potassium 4.2 MMOL/L (3.5-5.1)
[2022-05-17] MEDS: KETOROLAC 30 MG/1 ML VIAL IV PRN (17:20)
[2022-05-17] MEDS: OLANZapine 5 MG TABLET PO SCH (20:36)
[2022-05-17] MEDS: traZODone 50 MG TABLET PO SCH (20:37)
[2022-05-17] MEDS: ENOXAPARIN 40 MG/0.4 ML SYRINGE SUBCUT SCH (20:37)
[2022-05-18] MEDS: KETOROLAC 30 MG/1 ML VIAL IV PRN (09:38)
[2022-05-18] MEDS: CLINDAMYCIN 300 MG CAPSULE PO SCH ×2 (09:38→12:46)
[2022-05-18] MEDS: COLCHICINE 0.6 MG CAPSULE PO SCH (09:38)
[2022-05-18] MEDS: VENLAFAXINE XR 37.5 MG CAPSULE PO SCH (09:38)
[2022-05-18 11:50] VITALS: BP 120/75
== END 2022-05-18 14:54 ==
LOC: EDUNIT# → EDBD → N.3E 18:49 → N.ED 18:49 → N.3E 05-16 00:05
PROVIDERS: ADMIT Internal Medicine; ATTEND Internal Medicine

== ENCOUNTER 2022-06-07 17:52 | Observation (INO) ==
[2022-06-07 20:02] LABS: PT Patient Result 11.5 SECS (10.1-12.1); Partial Thromboplastin Time 23.4 SECS (23.7-32.9)
[2022-06-07 20:09] LABS: Basophils % 0.3 % (0.0-0.8); Eosinophils # 0.1 10*3/uL (0.0-0.87); Eosinophils % 0.7 % (0.00-10.9); Hematocrit 45.4 VOL% (42.0-52.0); Hemoglobin 16.6 GM/DL (14.0-18.0); Immature Granulocytes % 0.6 %; Immature Granulocytes Absolute 0.04 #; Lymphocytes # 1.4 10*3/uL (1.4-4.0); Lymphocytes % 20.5 % (21.2-54.2); Mean Corpuscular HGB Conc 36.6 GM/DL (32-36); Mean Corpuscular Volume 82.5 FL (87-102); Mean Platelet Volume 11.5 FL (9.6-12.0); Monocytes # 0.4 10*3/uL (0.11-0.8); Monocytes % 6.2 % (1.7-12.7); Neutrophils % 71.7 % (38.7-73.9); Platelet Count 220 T/CUMM (130-400); Red Cell Distribution Width 14.9 % (9.3-17.3); White Blood Count 6.8 T/CUMM (4-12)
[2022-06-07 20:23] LABS: Albumin 3.8 G/DL (3.4-5.0); Bilirubin,Total 0.8 MG/DL (0.20-1.00); Calcium 9.3 MG/DL (8.5-10.1); Potassium 3.4 MMOL/L (3.5-5.1); Thyroid Stimulating Hormone 1.41 uIU/ml (0.358-3.74); Total Protein 7.5 G/DL (6.4-8.2)
[2022-06-07] MEDS ORDERED: POTASSIUM CHLORIDE 20 MEQ TABLET PO STA (20:25)
[2022-06-07 20:48] LABS: Barbiturates Screen,Urine Negative (Negative); Benzodiazepines Screen,Urine Negative (Negative); Cannabinoid Screen,Urine Negative (Negative); Opiate Screen,Urine Negative (Negative); Phencyclidine Screen,Urine Negative (Negative)
[2022-06-07] MEDS ORDERED: SODIUM CHLORIDE 0.9% 1,000 ML IV ONE (23:58)
[2022-06-07] MEDS ORDERED: NICOTINE 21 MG/24 HR PATCH TRANSDERM PRN (23:59)
[2022-06-07] MEDS ORDERED: ACETAMINOPHEN 325 MG TABLET PO PRN (23:59)
[2022-06-07] MEDS ORDERED: hydrALAZINE 20 MG/1 ML VIAL IV PRN (23:59)
[2022-06-07] MEDS ORDERED: ZALEPLON 5 MG CAPSULE PO PRN (23:59)
[2022-06-07] MEDS ORDERED: guaiFENesin/DM ER 600-30 MG TABLET PO PRN (23:59)
[2022-06-07] MEDS ORDERED: ALBUTEROL/IPRATROPIUM 3 ML NEB RESP TX PRN (23:59)
[2022-06-07] MEDS ORDERED: diphenhydrAMINE CAP 25 MG CAPSULE PO PRN (23:59)
[2022-06-07] MEDS ORDERED: ONDANSETRON 4 MG/2 ML VIAL IV PRN (23:59)
[2022-06-08] MEDS ORDERED: ENOXAPARIN 80 MG/0.8 ML SYRINGE SUBCUT ONE (00:30)
[2022-06-08 04:53] LABS: Basophils % 0.3 % (0.0-0.8); Eosinophils # 0.1 10*3/uL (0.0-0.87); Eosinophils % 1.3 % (0.00-10.9); Hematocrit 43.2 VOL% (42.0-52.0); Hemoglobin 15.6 GM/DL (14.0-18.0); Immature Granulocytes % 0.3 %; Immature Granulocytes Absolute 0.02 #; Lymphocytes # 2.5 10*3/uL (1.4-4.0); Lymphocytes % 35.7 % (21.2-54.2); Mean Corpuscular HGB Conc 36.1 GM/DL (32-36); Mean Corpuscular Volume 83.1 FL (87-102); Mean Platelet Volume 11.7 FL (9.6-12.0); Monocytes # 0.5 10*3/uL (0.11-0.8); Monocytes % 7.3 % (1.7-12.7); Neutrophils % 55.1 % (38.7-73.9); Platelet Count 199 T/CUMM (130-400); Red Cell Distribution Width 14.9 % (9.3-17.3); White Blood Count 7.1 T/CUMM (4-12)
[2022-06-08 05:21] LABS: Calcium 8.8 MG/DL (8.5-10.1); Osmolality,Calculated 280.1 MOS/KG (273-304); Potassium 4.2 MMOL/L (3.5-5.1)
[2022-06-08] MEDS ORDERED: INSULIN LISPRO 100 UNIT/ML SUBCUT SCH (07:30)
[2022-06-08 08:02] VITALS: BP 126/86
[2022-06-08] MEDS ORDERED: PANTOPRAZOLE 40 MG TABLET PO SCH (09:00)
[2022-06-08] MEDS ORDERED: MAGNESIUM SULF RIDER 2 GM/50 ML PREMIX IV ONE (09:04)
[2022-06-08] MEDS ORDERED: METOPROLOL SUCCINATE XL 25 MG TABLET PO SCH (09:30)
== END 2022-06-08 09:45 | disposition left against medical advice (07) ==
LOC: EDBD → EDUNIT# → N.ED 17:52 → N.TELES 17:52
PROVIDERS: ADMIT Family Medicine; ATTEND Family Medicine